=== PATIENT | male | born 1945 | race Caucasian/White ===

== ENCOUNTER 2017-07-31 12:30 | Emergency (ER) | payer OTHER, MEDICAID ==
[2017-07-31 12:34] VITALS: BP 150/78; BMI 18.6
--- NOTE | 2017-07-31 13:20 | DR.EXTPAIN ---
HPI - Time seen Time seen: 13:05 - PCP Primary Care Physician: ROSE - Complaint/Symptoms Chief Complaint Doctor Comments: There was no associated dizziness or light headedness. He states that he tripped on an object on the floor. Chief Complaint:: PT. STATES HE FELL OFF OF THE [place] ON HIS RIGHT SHOULDER. PT. C/O PAIN AND LIMITED RANGE OF MOTION. - Nurses notes reviewed Nurses Notes Review: Yes - Source History Provided: Patient - Mode of arrival Mode of Arrival: Ambulatory - Timing Onset of Chief Complaint: 07/31/17 PMH - PMH Past Medical History: Yes Past Medical History: Hypertension, PUD Past Surgical History: Yes Surgical History: Abdominal Surgery, Ortho Surgery, Other - Family History History of Family Medical Conditions: Yes Family Medical History: [place] - Social History Does patient currently use any type of tobacco product: Yes Have you used tobacco products in the last 12 months: Yes Type of Tobacco Use: Cigarettes Does any household member use tobacco: No Alcohol Use: None Do you use any recreational Drugs:: No Lives With: Spouse Lives Where: Home - infectious screening In the last 2 months have you had wt loss of >10#?: NO Have you had fever, night sweats or hemotysis?: No Have you traveled outside the country in the last 6 months?: No Isolation: Standard ROS - Review of Systems Constitutional: No Symptoms Reported Eyes: No Symptoms Reported ENTM: No Symptoms Reported Respiratoy: No Symptoms Reported Cardiovascular: No Symptoms Reported Gastrointestinal/Abdominal: No Symptoms Reported Genitourinary: No Symptoms Reported Neurological: No Symptoms Reported Musculoskeletal: Right, Shoulder Integumentary: No Symptoms Reported Hematologic/Lymphatic: No Symptoms Reported Endocrine: No Symptoms Reported Psychiatric: No Symptoms Reported All Other Systems: Reviewed and Negative PE - Vital Signs Vitals: Temperature 97.6 F Pulse Rate 68 Respiratory Rate 17 Blood Pressure [Left Arm] 138/67 Blood Pressure [Right Arm] 134/74 Blood Pressure 150/78 O2 Sat by Pulse Oximetry 100 - General Limitations: No Limitations General Appearance: Alert, In No Apparent Distress - Head Head Exam: Normal Inspection - Eyes Eye exam: Normal Appearance - ENT ENT Exam: Normal Exam - Neck Neck Exam: Normal Inspection - Chest Chest Inspection: Normal Inspection - Respiratory Respiratory Exam: Normal Lung Sounds Bilat - Cardiovascular Cardiovascular Exam: Regular Rate, Normal Rhythm, +S1, +S2 - Abdominal Exam Abdominal Exam: Normal Inspection, Normal Bowel Sounds, Soft - Extremities Extremities Exam: Normal Inspection, Tenderness (right shoulder), Normal Capillary Refill. negative: Full ROM, Edema, Joint Swelling, Calf Tenderness - Upper Extremities Arm Exam: Normal Inspection Elbow Exam: Normal Inspection, Full ROM Forearm Exam: Normal Inspection, Full ROM Hand Exam: Normal Inspection, Full ROM Neuromotor Exam: Normal Exam - Lower Extremities Gait Exam: Not Tested/Not Observed - Back Back Exam: Normal Inspection - Neurological Neurological Exam: Alert, Oriented X3, CN II-XII Intact - Psychiatric Psychiatric Exam: Normal Affect, Normal Mood - Skin Skin Exam: Warm, Dry, Intact, Normal Color ROR - XRAY XRAY Interpreted by: Radiologist (no acute radiographic injury.) - Diagnosis Discharge Problem: Sprain of shoulder, right - Discharge Plan Disposition: HOME, SELF-CARE Condition: Stable - Follow ups/Referrals Follow ups/Referrals: POLLY ROSE [Primary Care Provider] - 3 days - Instructions Instructions: Shoulder Sprain
--- NOTE | 2017-07-31 13:29 | RAD ---
Examination: Right shoulder, two views History: Fell Findings: No definite fracture or dislocation. The humeral head is elevated in the glenoid, narrowing the subacromial space. There is mild age-appropriate osteopenia. Impression: No acute injury demonstrated on two view examination. Narrowed subacromial space may refl ect chronic rotator cuff disease. In the setting of acute shoulder trauma, lateral/orthogonal views a re helpful to exclude subtle traumatic displacement of the humerus. Reported By:
--- NOTE | 2017-07-31 13:58 | RAD ---
Exam: Right humerus AP and lateral views History: Injury Comparison: None Findings: AP and lateral views of the right humerus demonstrate no evidence of acute bony abnormality. IMPRESSION: No acute abnormalities identified in the right humerus. Reported By:
== END 2017-07-31 14:19 | disposition home or self-care (01) ==
LOC: ER 12:54
DX: S43.401A Unspecified sprain of right shoulder joint, initial encounter (principal); W19.XXXA Unspecified fall, initial encounter; Y92.89 Other specified places as the place of occurrence of the external cause
CPT/HCPCS: 73030; 73060; 99282